=== PATIENT | female | born 1970 | race Two or more races ===

== ENCOUNTER 2019-09-21 11:28 | Emergency (ER) | payer OTHER ==
[~2019-09-21] VITALS: Ht 162.6 cm; Wt 63.5 kg
[2019-09-21 11:44] VITALS: BP 139/68
[2019-09-21] MEDS ORDERED: ACETAMINOPHEN/CODEINE#3 (300/30mg) TAB PO ONE (13:15)
[2019-09-21] MEDS ORDERED: METHOCARBAMOL 500 MG TAB PO ONE (13:15)
== END 2019-09-21 14:17 | disposition home or self-care (01) ==
LOC: EDBD 11:28 → ER 11:28
DX: S62.347A Nondisplaced fracture of base of fifth metacarpal bone, left hand, initial encounter for closed fracture (principal); M54.2 Cervicalgia; M62.838 Other muscle spasm; M25.512 Pain in left shoulder; R07.89 Other chest pain; R42 Dizziness and giddiness; Z88.0 Allergy status to penicillin; V43.52XA Car driver injured in collision with other type car in traffic accident, initial encounter; Y93.89 Activity, other specified; Y92.488 Other paved roadways as the place of occurrence of the external cause; Y99.8 Other external cause status
CPT/HCPCS: 29125; 71046; 72125; 73110